=== PATIENT | female | born 1995 | race Caucasian/White ===

== ENCOUNTER → 2019-06-20 | Outpatient (CLI) | payer BC, SELFPAY ==
[2019-06-20 14:35] VITALS: BMI 30.2
[2019-06-22 14:51] LABS: HPV Reflexed? NOT INDICATED
== END | disposition home or self-care (01) ==
LOC: LABSPEC 16:13
PROVIDERS: PCP Family Medicine; Referring Provider Obstetrics & Gynecology; Visit Provider Obstetrics & Gynecology
DX: Z12.4 Encounter for screening for malignant neoplasm of cervix (principal)
CPT/HCPCS: 88175; G0145

== ENCOUNTER → 2021-07-28 | Outpatient (CLI) | payer BC, SELFPAY ==
[2021-07-30 17:23] LABS: HPV Reflexed? NOT INDICATED
== END | disposition home or self-care (01) ==
LOC: LABSPEC 09:35
PROVIDERS: Visit Provider Obstetrics & Gynecology
DX: Z12.4 Encounter for screening for malignant neoplasm of cervix (principal)
CPT/HCPCS: 88175; G0145

== ENCOUNTER 2021-08-03 14:30 | Emergency (ER) | payer BC, SELFPAY ==
[2021-08-03 14:31] VITALS: BP 111/74; PULSE 95; RESP 18; TEMP 36.2; O2SAT 99; BMI 26.6
--- NOTE | 2021-08-03 14:50 | RAD_ITS ---
STUDY: X-RAY - ABDOMEN/PELVIS REASON FOR EXAM: Female, 25 years old. constipation TECHNIQUE: Single AP view of the abdomen / pelvis. COMPARISON: None. FINDINGS: Normal visualized lung bases. There is an abundance of fecal material throughout the colon. The visualized liver, spleen and kidneys are grossly normal in size and morphology. Normal soft tissue structures. Normal visualized osseous structures. RAD/Abdomen Single View IMPRESSION: Large amount of fecal material is seen in the colon. Electronically Signed: Gagandeep Colunga MD at 15:10 EDT ,
--- NOTE | 2021-08-03 15:14 | EDS_ITS ---
HPI History of Present Illness Chief Complaint: Constipation Informant: patient Narrative Narrative: 25-year-old female presenting to the emergency department with chief complaint of constipation. Patient states that this has been a lifelong struggle for her. She reports that she saw her doctor a while ago was given a regimen that includes twice daily Colace MiraLAX and occasionally some magnesium citrate. She has been drinking lots of fluids. She has been trying to go for walks. She states that she has to strain most days that she has a bowel movement. Yesterday she after a enema she had a very small amount of stool. She feels bloated and has abdominal discomfort and back pain. She has not seen a electrical accessories i assembler. [facility] Medical History Anxiety with depression Home Medications sumatriptan succinate 25 mg tablet 25 mg PO ONCE 06/20/19 [History Last Taken U nknown] trazodone 50 mg tablet 50 mg PO QHS #30 tab 06/20/19 [Rx Last Taken Unknown] buspirone 10 mg tablet 10 mg PO TID PRN 07/23/20 [History Last Taken Unknown] topiramate 25 mg capsule sprinkle,extended release 24 hr 25 mg PO DAILY 07/23/20 [History Last Taken Unknown] venlafaxine 37.5 mg capsule,extended release 24 hr 37.5 mg PO DAILY 07/23/20 [History Last Taken Unknown] norethindrone (contraceptive) 0.35 mg tablet 0.35 mg PO QDAY #28 tab 07/27/21 [Rx Last Taken Unknown] Allergy/AdvReac Type Severity Reaction Status Date / Time Penicillins Allergy Shortness Verified 08/03/21 14:32 of breath Family History Grandmother Diabetes Cancer Grandfather COPD (chronic obstructive pulmonary disease) Diabetes Aneurysm Other CAD (coronary artery disease) Surgical History [place] teeth extracted Social History Smoking Status: Never smoker alcohol intake: current details: social substance use type: does not use caffeine: No what type of physical activity do you participate in: none frequency: 3-4 times per week seatbelt use: always do you feel safe at home: Yes additional social history: Graduated from [employer] [facility] ED Constitutional Constitutional ED: Denies chills or weight loss Eyes Eyes: Denies change in vision or diplopia ENT ENT ED: Denies ear pain, rhinorrhea or sore throat Cardiovascular Cardiovascular: Denies chest pain, orthopnea, palpitations or racing heartbeat Respiratory/Chest Respiratory/Chest: Denies cough, dyspnea or orthopnea Gastrointestinal Gastrointestinal: Reports constipation; Denies abdominal pain, diarrhea, nausea or vomiting Genitourinary Genitourinary ED: Denies dysuria, hematuria or urinary frequency Musculoskeletal Musculoskeletal: Denies arthralgias or myalgias Integumentary Denies abscess or rash Neurologic Neurologic: Denies headache(s) or weakness Psychiatric Psychiatric: Denies anxiety, depression, suicidal ideation or suicidal thoughts Endocrine Endocrinology: Denies polydipsia, polyphagia or polyuria Allergic/Immunologic Allergic/Immunologic ED: Denies mouth swelling, tongue swelling or urticaria EXAM Physical Exam Const Vital Signs: 08/03/21 14:31 Temperature 97.1 F L Temperature Source Temporal Pulse Rate 95 Respiratory Rate 18 Blood Pressure 111/74 Blood Pressure Mean 86 Pulse Ox 99 Oxygen Delivery Method Room Air Positive well nourished and well developed General Appearance ED: well developed HEENT Reports normocephalic, head/scalp atraumatic, TM's clear and moist mucous membranes Negative for trauma Tympanic Membrane ED: Yes TM's clear Eyes PERRL and EOMs intact bilaterally Neck no lymphadenopathy, supple and no JVD Resp normal respiratory effort and clear to auscultation bilaterally Cardio regular rate, regular rhythm and no murmurs GI normal to inspection, nondistended, normoactive bowel sounds and non-tender Palpation: soft Back/Spine no CVA tenderness and normal ROM Extremity normal to inspection General Extremety ED: Negative for edema General Extremity: Negative for edema Neuro oriented x3 and CN's II-XII intact bilaterally Sensorium / Orientation: alert Motor Exam: strength 5/5 throughout Psych mental status grossly normal Mood & Affect: Negative for depressed or tearful Skin no rashes or lesions noted and no wounds MDM MDM MDM Narrative Medical decision making narrative: My interpretation of the plain films of the abdomen is large amount of fecal material noted. There is no obstruction or impaction seen. Patient will be instructed on the use of magnesium citrate. I strongly encouraged her to follow-up with gastroenterology. Radiography Diagnostic Testing: Clinical Impression(s) from Imaging Studies KUB X-Ray 08/03/21 14:50 IMPRESSION: Large amount of fecal material is seen in the colon. Electronically Signed: Gagandeep Colunga MD at 15:10 EDT , Discharge Plan Triage Chief Complaint: Constipation ED Provider: Israel Wilkes Dx/Rx/DC Orders Clinical Impression: Constipation Instructions: ED Constipation (Adult) Prescriptions: No Action sumatriptan succinate 25 mg tablet 25 mg PO ONCE RF: 0 trazodone 50 mg tablet 50 mg PO QHS Qty: 30 RF: 12 topiramate 25 mg cap,sprinkle,ER 24hr dose pack 25 mg PO DAILY RF: 0 buspirone 10 mg tablet 10 mg PO TID PRNRF: 0 venlafaxine 37.5 mg capsule,extended release 24hr 37.5 mg PO DAILY RF: 0 norethindrone (contraceptive) [Ai] 0.35 mg tablet 0.35 mg PO QDAY Qty: 28 RF: 12 Primary Care Provider: Care Physician,No Primary Referrals: Friend,Khalif, DO [STAFF PHYSICIAN] - As soon as possible Care Physician,No Primary [Primary Care Provider] - Disposition Disposition: Home, Self Care
== END 2021-08-03 15:35 | disposition home or self-care (01) ==
LOC: ED 15:24
PROVIDERS: Emergency Provider Emergency Medicine; PCP Nurse Practitioner Family; Visit Provider Emergency Medicine
DX: K59.00 Constipation, unspecified (principal); F41.8 Other specified anxiety disorders; Z79.899 Other long term (current) drug therapy
CPT/HCPCS: 74018; 99282

== ENCOUNTER → 2024-08-31 | Outpatient (CLI) | payer OTHER, SELFPAY ==
[2024-09-03 23:07] LABS: Chlamydia By Nucleic Acid AMP Negative (Negative); Gonococcus By Nucleic Acid AMP Negative (Negative)
== END | disposition home or self-care (01) ==
LOC: LABSPEC 15:49
PROVIDERS: PCP Nurse Practitioner Family; Referring Provider Registered Nurse; Visit Provider Registered Nurse
DX: Z12.4 Encounter for screening for malignant neoplasm of cervix (principal); Z20.2 Contact with and (suspected) exposure to infections with a predominantly sexual mode of transmission; N89.8 Other specified noninflammatory disorders of vagina
CPT/HCPCS: 87070; 87205; 87491; 87591; 88175; G0145